=== PATIENT | female | born 1960 | race Caucasian/White ===

== ENCOUNTER → 2018-08-18 | Outpatient (CLI) | payer BC ==
[2015-03-08 08:03] VITALS: BP 104/68
[~2018-08-18] MED LIST: CONTRAST GIVEN. MC PRN; CRESTOR10 MG PO; IOHEXOL 300 MG/ML 100ML VIAL. IV ONE; LEVO25TA4 PO
--- NOTE | 2018-08-18 16:59 | KCIC ---
Chest CT with contrast Clinical indications: Dyspnea. Cough. Shortness of air since December 2017. History of non-Hodgkin's lymphoma. COMPARISON: No previous chest CT available. At technique: After IV infusion of 95 cc of Omnipaque 300, helical CT scanning of the chest was performed. PQRS compliance Statement One or more of the following individualized dose reduction techniques were utilized for this study: 1. Automated exposure control 2. Adjustment of the mA and/or kV according to patient size 3. Use of iterative reconstruction technique FINDINGS: No enlarged thoracic lymphadenopathy is evident. There is ectasia of the ascending aorta measuring up to 4.4 cm in greatest caliber. No dissection or intimal flap is seen. The heart size is normal and no pericardial effusion is seen. No pleural effusion or pneumothorax is seen. No lung mass or lung infiltrate is seen. No pleural effusion or pneumothorax is evident. The proximal bronchial tree is patent. No adrenal mass is seen. Spleen is not enlarged. No lytic process evident. No compression fracture of the thoracic spine is seen. IMPRESSION: No abnormally enlarged thoracic lymphadenopathy is evident. Ectasia of the ascending aorta. Normal heart size. No pericardial effusion. No lung mass or lung infiltrate is seen. Electronically signed by: Christopher Corona MD (08/18/2018 4:56 PM) [id number]
== END | disposition home or self-care (01) ==
LOC: KCIC CT 13:14
PROVIDERS: ATTEND Family Medicine
DX: I77.810 Thoracic aortic ectasia (principal); Z85.72 Personal history of non-Hodgkin lymphomas
CPT/HCPCS: 71260; Q9967

== ENCOUNTER → 2020-09-27 | Outpatient (CLI) | payer BC ==
[2015-03-08 08:03] VITALS: BP 104/68
[~2020-09-27] MED LIST changes: -CONTRAST GIVEN. MC PRN; -IOHEXOL 300 MG/ML 100ML VIAL. IV ONE
--- NOTE | 2020-09-27 16:35 | KCIC ---
Bilateral digital screening mammograms: Reason for examination: Routine screening. No previous examinations available for comparison. New baseline. Interpretation is made with the benefit of CAD. The skin and nipples show no abnormalities. No abnormal lymph nodes are seen. The breast parenchyma i s predominantly fatty. (Breast density: Category A.) There are no dominant masses, suspicious calcifi cations or architectural distortions. Impression: No evidence of malignancy. Recommend routine screening. BI-RADS Category 1: Negative. "Our facility is accredited by the [employer] Mammography [employer]." This patient's information has been entered into a reminder system for the patient to be notified wit h the results of her examination and a target date for the next mammogram. Electronically signed by: Linda Oakes MD (09/27/2020 4:32 PM) [id number]
== END ==
LOC: KCIC 14:30
PROVIDERS: ATTEND Family Medicine
DX: Z12.31 Encounter for screening mammogram for malignant neoplasm of breast (principal)
CPT/HCPCS: 77067